=== PATIENT | female | born 1975 | race Caucasian/White ===

== ENCOUNTER → 2017-04-23 | Day surgery (SDC) | payer OTHER ==
[~2017-04-23] VITALS: Ht 154.9 cm; Wt 77.0 kg
[~2017-04-23] MED LIST: BUPIVACAINE MPF 0.5% 30 ML VIAL. ONE; DEXAMETHASONE SOD PHOS 20 MG/5 ML VIAL. ONE; FAMOTIDINE 20 MG/2 ML VIAL ONE; HYDROmorphone 2 MG/ML VIAL IV PRN; IV RINGERS,LACTATED 1000ML 1,000 ML IV SCH; LIDOCAINE 1% PF 2 ML VIAL. ID PRN; LIDOCAINE 2% PF Vial for OR 5 ML VIAL. ONE; MIDAZOLAM HCL/PF 2 MG/2 ML VIAL. ONE; MORPHINE SULFATE 4 MG/ML DISP.SYRIN. IV PRN; ONDANSETRON PF 4 MG/2 ML VIAL. IV PRN; ONDANSETRON PF 4 MG/2 ML VIAL. ONE; OXYC-327 PO; PHEN37.598 PO; PROCHLORPERAZINE 10 MG/2 ML VIAL. IV PRN; PROPOFOL 20 ML IV ONE; VENL150C PO; fentaNYL PF VIAL 100 MCG/2 ML VIAL IV PRN; fentaNYL PF VIAL 100 MCG/2 ML VIAL ONE; oxyCODONE/APAP 7.5/325 1 TAB TABLET PO PRN
[2017-04-23 11:44] LABS: NEG OBC UR NEG; POS OBC UR POS
--- NOTE | 2017-04-23 13:05 | DISCH ---
DISCHARGE INSTRUCTIONS Condition on Discharge Condition on Discharge: Stable Activity After Discharge Activity Instructions for Disc: Other, see below Other activity instructions: avoid hard grasp Lifting Instructions after Dis: No heavy lifting, No pulling or pushing Diet after Discharge Diet after Discharge: Regular Wound Incision Care Wound/Incision Care: Ice to area for comfort, Keep wound elevated Other wound/incision instructi: keep dressing clean and dry Contacting the DRDafne after DC Call your doctor for: Concerns you may have Follow-Up Follow up with: Briana 10 days GOPI MOORE MD Apr 23, 2017 13:05
--- NOTE | 2017-04-23 13:11 | PDOC4 ---
Operative Note Operative Note Date of surgery: 04/23/2017 Preoperative diagnosis: Ganglion cyst left dorsal wrist Postoperative diagnosis: Same Procedure: Excision ganglion cyst left wrist Surgeon: Briana Anesthesia: Gen. Estimated blood loss less than 10 mL Specimen: Ganglion cyst to pathology Complications: None Operative indications: Patient is a 42-year-old female with left wrist mass and pain ongoing for several months it is waxing and waning but is more painful when it is bigger gives her some nerve type pain occasionally and pain with extremes of motion of her wrist as well I gone over possibility of operative treatment as well as nonoperative treatments the recurrence rate for each and the lower recurrence rate for surgical treatment but possibility of infection nerve or blood vessel damage medical or other anesthetic competitions. All her questions were answered consent was obtained and she agrees to proceed with operative evaluation and treatment Operative text: Patient was identified procedure verified patient placed in the supine position on operating table after adequate amounts of general anesthesia were administered tourniquet was placed on the left upper arm and the left arm was prepped and draped in standard sterile fashion. After timeout was performed patient procedure identified and verified, the left arm was exsanguinated by Esmarch bandage tourniquet inflated to 250 mmHg and a longitudinal incision was made over the dorsal wrist overlying the wrist mass. Dissection was carried out and it did have the appearance of a ganglion cyst originating from the dorsal wrist capsule. The cyst was dissected out entirely and removed sent for pathologic evaluation bleeding points were controlled by electrocautery and the base of the joint capsule and stock area were electrocauterized as well tourniquet was deflated thorough irrigation carried out normal saline solution closure accomplished with buried Vicryl suture and subcuticular Monocryl area and Steri-Strips and Mastisol were applied as was a sterile soft dressing with cast padding to limit wrist motion. She was returned recovery room in stable condition having tolerated procedure well GOPI MOORE MD Apr 23, 2017 13:11
[2017-04-23] MEDS: fentaNYL PF VIAL 100 MCG/2 ML VIAL IV PRN ×2 (13:17→13:27)
[2017-04-23 14:17] VITALS: BP 141/73
--- NOTE | 2017-04-27 13:01 | PATHOLOGY ---
PATHOLOGY REPORT * * * * * * * * FINAL DIAGNOSIS: Soft tissue, "left hand ganglion cyst", excision: - Ganglion cyst. (SKM:trinity; 04/27/2017) REPORT ELECTRONICALLY SIGNED BY: Maria T Chavarria M.D. DATE/TIME: 04/27/2017 13:00 * * * * * * * * GROSS PATHOLOGY: The specimen is received in formalin, labeled "Dusty Camacho, left hand ganglion cyst and consists of a firm, rough surfaced, glistening, yellow, and jama tissue fragment measuring 2.2 x 1.2 x 1.0 cm. The specimen is bisected revealing an underlying 0.5 cm cavity containing tenacious clear material. The specimen is totally submitted as A1. (KELY; 04/26/2017) INITIAL CPT CODE(S): A; 12704 Professional services performed [place] [facility] [place] [address] Technical services performed by [facility] at [address] [place] [address], [facility] [address] [place] [address]. SPECIMEN(S) RECEIVED: A.Left hand ganglion cyst CLINICAL HISTORY: Ganglion cyst left PATIENT: DUSTY CAMACHO /AGE: 803/04/1975 (Age: 42) PATIENT #: [id number] ALT CASE #: SPECIMEN COLLECTION DATE: 04/23/2017 SPECIMEN RECEIVED DATE: 04/23/2017 [facility] - [address] [place] [address] - PHONE: [phone] * * * END OF REPORT * * *
== END | disposition home or self-care (01) ==
LOC: SURG 11:14
PROVIDERS: ATTEND Orthopaedic Surgery
DX: M67.432 Ganglion, left wrist (principal); E66.9 Obesity, unspecified; Z68.32 Body mass index [BMI] 32.0-32.9, adult; F32.9 Major depressive disorder, single episode, unspecified; Z87.39 Personal history of other diseases of the musculoskeletal system and connective tissue; Z72.0 Tobacco use; Z91.040 Latex allergy status; Z91.048 Other nonmedicinal substance allergy status
CPT/HCPCS: 25111; 81025; C1769; J0690; J0780; J1100; J1170; J2250; J2405; J2704; J3010; J3490; S0028; J2001